=== PATIENT | female | born 1960 | race Caucasian/White ===

== ENCOUNTER 2019-02-22 06:50 | Day surgery (SDC) | payer OTHER ==
[~2019-02-22] VITALS: Ht 154.9 cm; Wt 75.8 kg
[2019-02-22 07:32] VITALS: Ht 154.9 cm; Wt 75.8 kg
[2019-02-22] MEDS ORDERED: LEVOTHYROXINE PO (07:43)
[2019-02-22] MEDS ORDERED: LOSARTAN PO (07:43)
[2019-02-22 07:45] VITALS: BP 130/68; PULSE 60; RESP 18
[2019-02-22 08:30] VITALS: BP 94/59; RESP 18
[2019-02-22] MEDS ORDERED: FENTAnyl 50 MCG/ML VIAL ONE (08:33)
[2019-02-22] MEDS ORDERED: MIDAZOLAM 1 MG/ML 2 ML INJ ONE ×2 (08:33→08:34)
[2019-02-22 08:43] VITALS: BP 101/59; RESP 20
[2019-02-22 08:48] VITALS: BP 95/60; RESP 20
[2019-02-22 09:26] VITALS: BP 97/65; PULSE 76
[2019-02-22 09:38] VITALS: BP 98/64; PULSE 77; RESP 20
--- NOTE | 2019-02-22 10:18 | CONS ---
DATE OF ADMISSION: 02/22/2019 DATE OF CONSULTATION: PATIENT NAME: CARLEE MARTINEZ TYPE OF CONSULTATION: Preoperative gastroenterology. Dear Dr. Watson: I thank you very much for this kind referral. HISTORY OF PRESENT ILLNESS: Ms. Carlee Martinez is a 58-year-old female patient who has been referred t o me for further evaluation of change in the bowel habit. No past history of colon neoplasm. The pa tient never had screening colonoscopy. Appetite is good, no weight loss. No upper abdominal pain. Not on nonsteroidal anti-inflammatory agents. No history of gallstones or liver disease. She is hyp ertensive. Not a diabetic. No heart disease, lung problem or kidney disease. Has hypothyroidism. SOCIAL HISTORY: Nonsmoker. No alcohol abuse. FAMILY HISTORY: No family history of gastrointestinal tract neoplasm. ALLERGIES: NO DRUG ALLERGIES. MEDICATIONS: 1. Losartan. 2. Levothyroxine. PHYSICAL EXAMINAITION: GENERAL: She is 5 feet 1 inch tall and weighs 171 pounds. HEART: Normal heart sounds. LUNGS: Clear. ABDOMEN: Soft, no masses. Normal bowel sounds. NEUROLOGIC: Normal neurological exam. IMPRESSION: 1. Change in the bowel habit. 2. The patient never had screening colonoscopy. 3. Hypertension. 4. Hypothyroidism. PLAN: Screening colonoscopy. The procedure and possible complications are well explained to the patient. The patient understands and consents to the procedure. I thank you once again. With warmest personal regards, Dictated By: CED CHOE/STEPH Conf#: [id number] DID#: [id number]
== END 2019-02-22 12:17 | disposition home or self-care (01) ==
LOC: GIL 06:50
PROVIDERS: ATTEND Internal Medicine Gastroenterology
DX: Z12.11 Encounter for screening for malignant neoplasm of colon (principal); K64.8 Other hemorrhoids; D12.5 Benign neoplasm of sigmoid colon; I10 Essential (primary) hypertension; E03.9 Hypothyroidism, unspecified
CPT/HCPCS: 45380; 88305; J2250; J3010; Z7610